=== PATIENT | male | born 1995 | race Caucasian/White ===

== ENCOUNTER 2025-02-02 09:28 | Emergency (ER) | payer OTHER ==
[2025-02-02] MEDS: Ketorolac 30 MG/ML SDV IM ONE (11:57)
[2025-02-02] MEDS: Dexamethasone Sod Phos Preservative Free 10 MG/ML Vial IM ONE (11:58)
[2025-02-02] MEDS: Orphenadrine 60 MG/2 ML Inj IM ONE (11:58)
== END 2025-02-02 12:36 | disposition home or self-care (01) ==
LOC: MW.ED 09:28
DX: M54.50 Low back pain, unspecified (principal); F17.200 Nicotine dependence, unspecified, uncomplicated; Z75.3 Unavailability and inaccessibility of health-care facilities; Z88.8 Allergy status to other drugs, medicaments and biological substances; Z79.899 Other long term (current) drug therapy
CPT/HCPCS: 72131; 72192; 96372; 99283; A9270; J1100; J1885; J2360